=== PATIENT | male | born 1975 | race American Indian/Alaskan Native ===

== ENCOUNTER 2018-06-16 09:38 | Emergency (ER) | payer SELFPAY ==
[2018-06-16 09:53] VITALS: BP 127/79; PULSE 84; RESP 16; TEMP 98.6
[2018-06-16 09:54] VITALS: BMI 21.9
[2018-06-16 09:59] VITALS: O2SAT 98
--- NOTE | 2018-06-16 11:04 | ED PDOC ---
Lower Extremity Pain/Injury Time Seen by Provider: 06/16/18 11:01 Chief Complaint (Nursing): Lower Extremity Problem/Injury Chief Complaint (Provider): left leg swelling History Per: Patient (42 y/o male here with ongoing left thigh cyst x 4 months. Denies any fevers/chills. ) Past Medical History Reviewed: Historical Data, Nursing Documentation, Vital Signs Vital Signs: Last Vital Signs Temp 98.6 F 06/16/18 09:53 Pulse 84 06/16/18 09:53 Resp 16 06/16/18 09:53 BP 127/79 06/16/18 09:53 Pulse Ox 98 06/16/18 09:57 - Family History Family History: States: No Known Family Hx - Home Medications Home Medications: Ambulatory Orders Medication Instructions Recorded Cephalexin [Keflex] 500 mg PO TID #15 capsule 06/16/18 - Allergies Allergies/Adverse Reactions: Allergies Allergy/AdvReac Type Severity Reaction Status Date / Time No Known Allergies Allergy Verified 06/16/18 09:57 Review of Systems ROS Statement: Except As Marked, All Systems Reviewed And Found Negative Physical Exam - Reviewed Nursing Documentation Reviewed: Yes Vital Signs Reviewed: Yes - Physical Exam Appears: Positive for: Well, Non-toxic, No Acute Distress Head Exam: Positive for: ATRAUMATIC, NORMAL INSPECTION, NORMOCEPHALIC Skin: Positive for: Warm. Negative for: Normal Color (2 cm cyst noted pendulated. No signs of erythema.) Eye Exam: Positive for: EOMI, Normal appearance, PERRL ENT: Positive for: Normal ENT Inspection Neck: Positive for: Normal, Painless ROM Cardiovascular/Chest: Positive for: Regular Rate, Rhythm Respiratory: Positive for: CNT, Normal Breath Sounds Gastrointestinal/Abdominal: Positive for: Normal Exam, Soft Back: Positive for: Normal Inspection Extremity: Positive for: Normal ROM Neurologic/Psych: Positive for: Alert, Oriented - ECG O2 Sat by Pulse Oximetry: 98 - Progress ED Course And Treament: Verbal consent obtained prior to procedure. Serous fluid aspirated. d/w patient f/u in clinic for further evaluation and surgical referral. Disposition - Clinical Impression Clinical Impression: Skin cyst - Patient ED Disposition Is Patient to be Admitted: No - Disposition Referrals: Radha Flaherty MD [Staff Provider] - formerly [facility] [Outside] Disposition: Routine/Home Disposition Time: 11:05 Condition: FAIR Prescriptions: Cephalexin [Keflex] 500 mg PO TID #15 capsule Instructions: Epidermal Cyst
== END 2018-06-16 11:30 | disposition home or self-care (01) ==
LOC: H.ER 09:38
DX: R22.42 Localized swelling, mass and lump, left lower limb (principal)